=== PATIENT | female | born 1965 | race Caucasian/White ===

== ENCOUNTER → 2021-01-08 08:57 | Outpatient (CLI) | payer OTHER, SELFPAY ==
[2021-01-08] MEDS: COVID-19 VACC, Ad26(JANSSEN)/PF 0.5 ML IM (09:05)
== END ==
PROVIDERS: Visit Provider Internal Medicine
DX: Z23 Encounter for immunization (principal)
CPT/HCPCS: 0031A; 91303

== ENCOUNTER → 2022-05-22 09:19 | Outpatient (CLI) | payer OTHER, SELFPAY ==
--- NOTE | 2022-05-22 09:21 | DI.CT.S_ITS ---
PROCEDURE: CT ABDOMEN PELVIS W CON INDICATIONS: Abdominal distension (gaseous) TECHNIQUE: After the administration of intravenous contrast, axial sections acquired from the lung bases to the pubic symphysis. Coronal and sagittal reformats were performed. For radiation dose reduction, the following was used: automated exposure control, adjustment of mA and/or kV according to patient size. COMPARISON: None. FINDINGS: Lower thorax: The lung bases are clear. Heart size normal. No hiatal hernia. Bilateral breast prosthesis, partially imaged Liver: Normal in size and attenuation. No contour deformity present. 5 mm left hepatic hypodensity, likely cyst Biliary system: No calcified cholelithiasis or pericholecystic inflammation. No intra or extrahepatic bile duct dilatation. Pancreas: Unremarkable without mass or inflammation evident. Spleen: Normal in size and density. Adrenals: Normal morphology and density. Reproductive system: Unremarkable as visualized. Urinary system: Normal renal size and attenuation. No renal calculi, hydronephrosis, or solid mass present. Urinary bladder unremarkable. Gastrointestinal system: The bowel is unremarkable without evidence of bowel obstruction or inflammation. The stomach appears unremarkable. Moderate fecal debris throughout the colon Appendix: No findings to suggest acute appendicitis. Peritoneal spaces: No mesenteric or retroperitoneal adenopathy. No free air. No free fluid. Vasculature: The IVC, aorta and iliac vasculature are unremarkable. Abdominal wall: Abdominal wall intact without evidence of ventral or inguinal hernias. Musculoskeletal: Normal bone mineralization. Mild degenerative disc disease and arthropathy noted in lower lumbar spine. No acute fractures. IMPRESSION: 1. Moderate fecal debris throughout the colon without obstruction inflammation. Approved by: Elroy Morataya M.D. on 05/22/2022 at 10:59
== END ==
PROVIDERS: PCP Family Medicine; Referring Provider Family Medicine; Visit Provider Family Medicine
DX: R14.0 Abdominal distension (gaseous) (principal); R19.8 Other specified symptoms and signs involving the digestive system and abdomen
CPT/HCPCS: 74177; Q9967

== ENCOUNTER → 2024-05-21 11:50 | Outpatient (CLI) | payer OTHER, SELFPAY ==
--- NOTE | 2024-05-21 11:53 | DI.CT.S_ITS ---
PROCEDURE: CT FACIAL BONES W CON INDICATIONS: RT UPPER AND LOWER JAW PAIN / HX BREAST CANCER TECHNIQUE: After the administration of intravenous contrast, 2.5 mm axial sections acquired from the mid-neck to the frontal sinuses, with coronal and sagittal reformats. For radiation dose reduction, the following was used: automated exposure control, adjustment of mA and/or kV according to patient size. COMPARISON: None. FINDINGS: Maxillofacial Bones: The zygomaticomaxillary complex is intact. The pterygoid plates and skull base are unremarkable. No evidence of fracture or lytic lesion. Mandible: The mandible is intact without fracture. Unremarkable temporomandibular articulation. Dentition: Unremarkable mandibular and maxillary dentition. Soft tissues: No maxillofacial soft tissue swelling. No radiopaque foreign bodies. Orbits: The osseous orbits, globes and ocular muscles unremarkable. Sinuses and Mastoid: The visualized portion of the paranasal sinuses and mastoids are normal. No air-fluid levels or wall fractures. The nasal vault is unremarkable. IMPRESSION: Unremarkable contrast maxillofacial CT Approved by: Elroy Morataya M.D. on 05/22/2024 at 17:44
[2024-05-21 12:41] LABS: Estimated Glomerular Filt Rate > 60 mL/min (>60)
== END ==
LOC: CT 11:52
PROVIDERS: Radiology Diagnostic Radiology; PCP Family Medicine; Referring Provider Family Medicine; Visit Provider Family Medicine
DX: R68.84 Jaw pain (principal)
CPT/HCPCS: 36415; 70487; 82565; Q9967